=== PATIENT | female | born 1970 | race Two or more races ===

== ENCOUNTER 2018-03-16 20:50 | Emergency (ER) | payer SELFPAY ==
[2018-03-16] MEDS ORDERED: Aspirin 81mg Chewable Tab PO STA (21:01)
[2018-03-16 21:21] LABS: % BASOPHILS 0.9 % (0.0-2.0); % EOSINOPHILS 2.6 % (0.0-5.0); % LYMPHOCYTES 35.2 % (20.0-50.0); % NEUTROPHILS 53.3 % (40.0-80.0); BASOPHILE ABSOLUTE 0.1 Th/cumm (0-0.2); EOSINOPHILE ABSOLUTE 0.2 Th/cmm (0.1-0.4); HEMATOCRIT 35.5 % (41.0-60); HEMOGLOBIN 11.1 gm/dL (12-16); LYMPHOCYTE ABSOLUTE 3.1 Th/cmm (1.5-3.0); MEAN CORPUSCULAR HEMOGLOBIN 23.1 pg (27.0-31.0); MEAN CORPUSCULAR HGB CONC 31.2 pg (28.0-36.0); MEAN PLATELET VOLUME 6.7 fl; MONOCYTE ABSOLUTE 0.7 Th/cmm (0.3-1.0); NEUTROPHILE ABSOLUTE 4.8 Th/cmm (1.8-8.0); PLATELET COUNT 373 Th/cmm (150-400); RED CELL DISTRIBUTION WIDTH 17.6 % (11.5-20.0); WHITE BLOOD COUNT 8.9 Th/cmm (4.8-10.8)
[2018-03-16] MEDS ORDERED: Acetaminophen 500 MG TAB PO ONE (21:27)
[2018-03-16 21:36] LABS: INR 0.93 (0.5-1.4); PROTHROMBIN TIME (TEST) 9.7 SECONDS (9.5-11.5)
[2018-03-16 21:37] LABS: ALB/GLOB RATIO 1.2 (1.0-1.8); ALBUMIN 3.8 gm/dL (3.7-5.3); ALKALINE PHOSPHATASE 49 U/L (34-104); ANION GAP 9.7 (7.0-16.0); BILIRUBIN,TOTAL 0.3 mg/dL (0.3-1.0); BUN - UREA NITROGEN 11 mg/dL (7-25); CALCIUM SERUM 9.2 mg/dL (8.6-10.3); CARBON DIOXIDE 25.9 mEq/L (21.0-31.0); CHLORIDE 102 mEq/L (98-107); CREATININE - SERUM 0.6 mg/dL (0.6-1.2); GFR AFRICAN-AMERICAN > 60.0 ml/min (>90); GFR NON AFRICAN-AMERICAN > 60.0 ml/min; GLUCOSE 112 mg/dL (70-105); POTASSIUM SERUM 3.6 mEq/L (3.5-5.1); SGOT 29 U/L (13-39); SGPT/ALT 18 U/L (7-52); SODIUM SERUM 134 mEq/L (136-145); TOTAL PROTEIN,SERUM 7.1 gm/dL (6.0-8.3)
--- NOTE | 2018-03-16 21:41 | ED Physician Chart ---
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 SHE STATES HAD FIVE OVER TEN PAIN WITHOUT NAUSEA AND WITHOUT SHORTNESS OF BREATH. THE PAIN STARTED WHILE DRIVING TO WORK YESTERDAY AND AGAIN THIS PM. SHE DENIES SMOKING, DRUG AND ALCOHOL. SHE DENIES A FAMILY HISTORY OF HEART DISEASE. NO HISTORY OF RECENT OR OLD CHEST TRAUMA. SHE DENIES HYPERTENSION AND DIABETES MELLITUS. Allergies:: Allergies Allergy/AdvReac Type Severity Reaction Status Date / Time No Known Allergies Allergy Verified 03/16/18 20:54 Vitals:: Vital Signs - 8 hr 03/16/18 03/16/18 03/16/18 20:50 21:04 21:29 Temp 97.1 F 97.3 F HR 79 78 88 RR 18 18 BP 113/71 109/75 105/78 O2 Sat % 99 94 Historian:: Patient Review:: Nurse's Note Reviewed ED Review of Systems - Review of Systems General/Constitutional: No fever, No chills, No weight loss, No weakness, No diaphoresis, No edema, No loss of appetite Skin: No skin lesions, No rash, No bruising Head: No headache, No light-headedness Eyes: No loss of vision, No pain, No diplopia ENT: No earache, No nasal drainage, No sore throat, No tinnitus Neck: No neck pain, No swelling, No thyromegaly, No stiffness, No mass noted Cardio Vascular: Chest pain, No palpitations, No PND, No orthopnea, No edema Pulmonary: No SOB, No cough, No sputum, No wheezing GI: No nausea, No vomiting, No diarrhea, No pain, No melena, No hematochezia, No constipation, No hematemesis G/U: No dysuria, No frequency, No hematuria Musculoskeletal: No bone or joint pain, No back pain, No muscle pain Endocrine: No polyuria, No polydipsia Psychiatric: No prior psych history, No depression, No anxiety, No suicidal ideation Hematopoietic: No bruising, No lymphadenopathy Allergic/Immuno: No urticaria, No angioedema Neurological: No syncope, No focal symptoms, No weakness, No paresthesia, No headache, No seizure, No dizziness, No confusion, No vertigo Family Medical History - Family Member Mother History Unknown: Yes ED Labs/Radiology/EKG Results - Lab Results Results: Laboratory Tests 03/16/18 21:14 WBC 8.9 RBC 4.80 Hgb 11.1 L Hct 35.5 L MCV 74.0 L MCH 23.1 L MCHC Differential 31.2 RDW 17.6 Plt Count 373 MPV 6.7 Neutrophils % 53.3 Lymphocytes % 35.2 Monocytes % 8.0 Eosinophils % 2.6 Basophils % 0.9 - EKG Interpretations EKG Time:: 21:06 Rate & Rhythm: RATE =77 SINUS Wesley: RIGHT AXIS ED Assessment - Assessment General Assessment: NON CARDIAC CHEST PAIN ANXIETY REACTION ED Septic Shock - . Is Septic Shock (SBP<90, OR Lactate>4 mmol\L) present?: No - <6hrs of presentation: Vital Signs: Vital Signs - 8 hr 03/16/18 03/16/18 03/16/18 20:50 21:04 21:29 Temp 97.1 F 97.3 F HR 79 78 88 RR 18 18 BP 113/71 109/75 105/78 O2 Sat % 99 94 ED Reassessment (Disposition) - Reassessment Reassessment Condition:: Improved - Diagnosis Diagnosis:: ANXIETY REACTION NON-CARDIAC CHEST PAIN - Aftercare/Follow up Instructions Aftercare/Follow-Up Instructions:: Counseled pt regarding lab results/diagnosis & need follow up, Refer to Discharge Instructions, Counseled pt & family regarding lab results/diagnosis & need follow up Notes:: THE PATIENT WAS TOLD TO GET MORE REST AND WORK LESS. - Patient Disposition Discharge/Transfer:: Home Condition at Disposition:: Improved
[2018-03-18 09:14] LABS: IRON LC 20 ug/dL (27-159); TIBC (LC) 431 ug/dL (250-450); UIBC 411 ug/dL (131-425)
== END 2018-03-16 22:24 | disposition home or self-care (01) ==
LOC: ER 20:50 → EEVIPCON 20:50 → ER 22:24
DX: F41.1 Generalized anxiety disorder (principal); R07.2 Precordial pain
CPT/HCPCS: 36415-UA; 80053-TC; 83540-90; 83550-90; 84443-TC; 84484-TC; 85025-TC; 85610-TC; 85730-TC; 93005; Z7502